=== PATIENT | male | born 1995 | race Caucasian/White ===

== ENCOUNTER 2021-12-05 02:56 | Emergency (ER) | payer MEDICAID ==
[~2021-12-05] VITALS: Ht 177.8 cm; Wt 84.1 kg
[2021-12-05 03:53] VITALS: BP 130/87
== END 2021-12-05 04:19 | disposition home or self-care (01) ==
LOC: EMS 02:57
DX: S60.412A Abrasion of right middle finger, initial encounter (principal); W49.04XA Ring or other jewelry causing external constriction, initial encounter; Y93.89 Activity, other specified; Y92.89 Other specified places as the place of occurrence of the external cause; Y99.8 Other external cause status
CPT/HCPCS: 99284; Z7502

== ENCOUNTER 2021-12-28 00:20 | Inpatient (IN) | payer MEDICAID ==
[2021-12-28] VITALS (7 sets, daily range): BP systolic 89–110; BP diastolic 50–66
[~2021-12-28] VITALS: Ht 180.3 cm; Wt 109.4 kg
[2021-12-28] MEDS ORDERED: SODIUM CHLORIDE 0.9% 3,000 ML IV ONE (01:15)
[2021-12-28] MEDS ORDERED: ONDANSETRON HCL 4 MG/2 ML VIAL IVP ONE ×2 (01:15→12:00)
[2021-12-28] MEDS ORDERED: VANCOMYCIN HCL 1.5 GM in DEXTROSE 5%-WATER 250 ML IV ONE ×2 (01:15→13:45)
[2021-12-28] MEDS ORDERED: ACETAMINOPHEN 500 MG TABLET PO ONE (01:15)
[2021-12-28 01:25] LABS: BASOPHILS % (AUTO) 0.3 % (0.0-2.0); EOSINOPHILS % (AUTO) 0.1 % (1.0-6.0); LYMPHOCYTES # (AUTO) 2.2 K/uL (1.0-4.8); LYMPHOCYTES % (AUTO) 9.9 % (22.0-44.0); MEAN CORPUSCULAR HEMOGLOBIN 29.7 pg (26.0-34.0); MEAN CORPUSCULAR HGB CONC 34.2 G/dL (31.0-37.0); MEAN CORPUSCULAR VOLUME 87 fL (80-100); MONOCYTES # (AUTO) 2.3 K/uL (0.1-1.0); NEUTROPHILS # (AUTO) 17.9 K/uL (1.8-7.7); NEUTROPHILS % (AUTO) 79.7 % (40.0-70.0); PLATELET COUNT (AUTO) 418 K/uL (150-450); RED BLOOD CELL COUNT(AUTO) 4.04 MIL/uL (4.50-5.90); RED CELL DISTRIBUTION WIDTH 14.2 % (11.5-14.5)
[2021-12-28 01:36] LABS: ANION GAP 8 mmol/L (8-16); CALCIUM, TOTAL 8.8 mg/dL (8.8-10.5); CARBON DIOXIDE 27 mmol/L (22-29); CHLORIDE 98 mmol/L (98-107); CREATININE 0.97 mg/dL (0.60-1.30); GLOMERULAR FILTR. RATE CALC > 60 mL/min (>60); GLUCOSE,RANDOM 129 mg/dL (70-110); POTASSIUM 3.7 mmol/L (3.5-5.1); SODIUM SERUM 133 mmol/L (136-145); UREA NITROGEN, BLOOD 13 mg/dL (7-18)
[2021-12-28 01:42] LABS: ALANINE AMINOTRANSFERASE 80 U/L (12-78); ALKALINE PHOSPHATASE 86 U/L (46-116); ASPARTATE AMINOTRANSFERASE 51 U/L (15-37); BILIRUBIN,TOTAL 0.6 mg/dL (0.1-1.0); TOTAL PROTEIN, SERUM 8.5 g/dL (6.4-8.2)
[2021-12-28] MEDS ORDERED: SODIUM CHLORIDE 0.9% 100 ML ONE (01:49)
[2021-12-28] MEDS ORDERED: IOHEXOL 350 MG/ML 150 ML VIAL ONE (01:49)
[2021-12-28 02:03] LABS: LACTIC ACID 0.7 mmol/L (0.4-2.0)
[2021-12-28] MEDS ORDERED: PIPERACILLIN/TAZO 3.375 GM/D5W 50 ML IV ONE (05:00)
[2021-12-28] MEDS: SODIUM CHLORIDE 0.9% 1,000 ML IV SCH ×3 (05:45→21:45)
[2021-12-28] MEDS ORDERED: ACETAMINOPHEN 325 MG TABLET PO PRN (05:45)
[2021-12-28 05:49] LABS: COVID AG,FIA SOURCE NASOPHARYNGEAL
[2021-12-28] MEDS ORDERED: CLINDAMYCIN 900 MG/D5% WATER 50 ML IV ONE (06:15)
[2021-12-28 06:40] LABS: APPEARANCE,URINE CLEAR (CLEAR); BILIRUBIN,URINE NEGATIVE (NEGATIVE); GLUCOSE, URINE (UA) NEGATIVE (NEGATIVE); KETONES,URINE NEGATIVE (NEGATIVE); LEUKOCYTE ESTERASE ,URINE NEGATIVE (NEGATIVE); NITRATE,URINE NEGATIVE (NEGATIVE); OCCULT BLOOD,URINE TRACE (NEGATIVE); PH,URINE 5.5 (5.0-8.0); PROTEIN,URINE NEGATIVE (NEGATIVE); SPECIFIC GRAVITIY, URINE 1.023 (1.003-1.030); UROBILINOGEN,URINE <=1.0 mg/dL (<=1.0)
[2021-12-28 06:47] LABS: AMPHET/METH SCREEN,URINE POSITIVE (NEGATIVE); BARBITURATE SCREEN, URINE NEGATIVE (NEGATIVE); BENZODIAZEPINES SCREEN,URINE NEGATIVE (NEGATIVE); CANNABINOID SCREEN,URINE POSITIVE (NEGATIVE); COCAINE SCREEN,URINE NEGATIVE (NEGATIVE); METHADONE SCREEN, URINE NEGATIVE (NEGATIVE); OPIATE SCREEN,URINE NEGATIVE (NEGATIVE)
[2021-12-28 06:50] LABS: PHENCYCLIDINE SCREEN,URINE NEGATIVE (NEGATIVE)
[2021-12-28 07:15] LABS: BACTERIA,URINE None Seen /HPF (None Seen); RBC,URINE 0-2 /HPF (0-2); WBC,URINE None Seen /HPF (0-5)
[2021-12-28] MEDS ORDERED: KETOROLAC TROMETHAMINE 60 MG/2 ML VIAL IM ONE (12:00)
[2021-12-28] MEDS ORDERED: ROCURONIUM BROMIDE 10 MG/ML 5 ML VIAL IVP ONE (12:00)
[2021-12-28] MEDS ORDERED: LIDOCAINE/PF 2% 5 ML VIAL IM ONE (12:00)
[2021-12-28] MEDS ORDERED: PROPOFOL 1% 20 ML VIAL IVP ONE (12:00)
[2021-12-28] MEDS ORDERED: FentaNYL CITRATE PF 100 MCG/2 ML VIAL IVP ONE (12:00)
[2021-12-28] MEDS ORDERED: DEXAMETHASONE SOD PHOS 4 MG/ML VIAL IVP ONE (12:00)
[2021-12-28] MEDS ORDERED: HYDROmorphone 2 MG/ML VIAL IVP ONE (12:00)
[2021-12-28] MEDS ORDERED: 0.9% SODIUM CHLORIDE 10 ML VIAL IVP ONE (12:00)
[2021-12-28] MEDS ORDERED: MIDAZOLAM HCL 2 MG/2 ML VIAL IVP ONE (12:00)
[2021-12-28] MEDS: PIPERACILLIN/TAZO 3.375 GM/D5W 50 ML IV SCH ×3 (12:15→23:56)
[2021-12-28] MEDS: MORPHINE SULFATE 4 MG/ML SYRINGE IVP PRN (13:01)
[2021-12-28] MEDS ORDERED: RINGERS SOLUTION,LACTATED 1,000 ML IV ONE (14:42)
[2021-12-28] MEDS ORDERED: MEPERIDINE-PF 25 MG/ML VIAL IVP PRN (15:30)
[2021-12-28] MEDS ORDERED: HYDROmorphone 2 MG/ML VIAL IVP PRN (15:30)
[2021-12-28] MEDS ORDERED: FentaNYL CITRATE PF 100 MCG/2 ML VIAL IVP PRN (15:30)
[2021-12-28] MEDS ORDERED: IBUPROFEN 800 MG TABLET PO PRN (16:15)
[2021-12-28] MEDS ORDERED: SODIUM CHLORIDE 0.9% 250 ML IV ONE (18:15)
[2021-12-28] MEDS: OXYGEN THERAPY IH SCH (20:00)
[2021-12-28] MEDS: HEPARIN SODIUM,PORCINE 5,000 UNITS/ML VIAL SQ SCH (22:25)
[2021-12-28] MEDS: VANCOMYCIN HCL 1.25 GM in DEXTROSE 5%-WATER 250 ML IV SCH (23:19)
[2021-12-29 04:15] VITALS: BP 122/75
[2021-12-29] MEDS: SODIUM CHLORIDE 0.9% 1,000 ML IV SCH ×2 (05:33→14:54)
[2021-12-29] MEDS: PIPERACILLIN/TAZO 3.375 GM/D5W 50 ML IV SCH ×4 (05:33→22:58)
[2021-12-29] MEDS: ONDANSETRON HCL 4 MG/2 ML VIAL IVP PRN (06:44)
[2021-12-29 07:20] VITALS: BP 116/89
[2021-12-29] MEDS: OXYGEN THERAPY IH SCH ×2 (07:52→20:00)
[2021-12-29] MEDS: HEPARIN SODIUM,PORCINE 5,000 UNITS/ML VIAL SQ SCH ×2 (07:56→16:26)
[2021-12-29] MEDS: VANCOMYCIN HCL 1.25 GM in DEXTROSE 5%-WATER 250 ML IV SCH (07:56)
[2021-12-29 08:19] LABS: CALCIUM, TOTAL 8.8 mg/dL (8.8-10.5); CREATININE 2.32 mg/dL (0.60-1.30); POTASSIUM 4.8 mmol/L (3.5-5.1)
[2021-12-29] MEDS ORDERED: VANCOMYCIN 1GM/WATER(PEG/NADA) 200 ML IV PRN (08:30)
[2021-12-29] MEDS: MORPHINE SULFATE 4 MG/ML SYRINGE IVP PRN ×3 (10:32→22:59)
[2021-12-29 12:00] VITALS: BP 123/63
[2021-12-29] MEDS: HYDROCODONE/ACETAMINOPHEN 5-325 MG TABLET PO PRN (14:54)
[2021-12-29 15:42] VITALS: BP 115/62
[2021-12-29 20:05] VITALS: BP 122/65
[2021-12-30 00:23] VITALS: BP 133/55
[2021-12-30] MEDS: SODIUM CHLORIDE 0.9% 1,000 ML IV SCH ×4 (00:29→22:05)
[2021-12-30 03:07] LABS: HIV 1-2 SCREEN 4TH GEN W/RFLX Non Reactive (Non Reactive)
[2021-12-30] MEDS: ONDANSETRON HCL 4 MG/2 ML VIAL IVP PRN ×2 (04:39→18:28)
[2021-12-30] MEDS: MORPHINE SULFATE 4 MG/ML SYRINGE IVP PRN ×2 (04:39→17:26)
[2021-12-30 04:55] VITALS: BP 132/70
[2021-12-30 07:01] LABS: BASOPHILS % (AUTO) 0.4 % (0.0-2.0); EOSINOPHILS % (AUTO) 0.2 % (1.0-6.0); HEMATOCRIT 33.5 % (41-53); HEMOGLOBIN 10.8 g/dL (13.5-17.5); LYMPHOCYTES # (AUTO) 1.9 K/uL (1.0-4.8); LYMPHOCYTES % (AUTO) 12.5 % (22.0-44.0); MEAN CORPUSCULAR HEMOGLOBIN 28.7 pg (26.0-34.0); MEAN CORPUSCULAR HGB CONC 32.2 G/dL (31.0-37.0); MEAN CORPUSCULAR VOLUME 89 fL (80-100); MONOCYTES # (AUTO) 1.7 K/uL (0.1-1.0); MONOCYTES % (AUTO) 10.8 % (2.0-9.0); NEUTROPHILS # (AUTO) 11.8 K/uL (1.8-7.7); NEUTROPHILS % (AUTO) 76.1 % (40.0-70.0); PLATELET COUNT (AUTO) 428 K/uL (150-450); RED BLOOD CELL COUNT(AUTO) 3.76 MIL/uL (4.50-5.90); RED CELL DISTRIBUTION WIDTH 14.3 % (11.5-14.5)
[2021-12-30 07:21] LABS: CALCIUM, TOTAL 8.3 mg/dL (8.8-10.5); CREATININE 4.09 mg/dL (0.60-1.30); POTASSIUM 4.3 mmol/L (3.5-5.1); VANCOMYCIN,RANDOM 37.9 mcg/mL (25.0-50.0)
[2021-12-30] MEDS: PIPERACILLIN/TAZO 3.375 GM/D5W 50 ML IV SCH (07:32)
[2021-12-30 07:54] VITALS: BP 123/69
[2021-12-30] MEDS: MULTIVITAMINS WITH MINERALS, THERAPEUTIC TABLET PO SCH (08:35)
[2021-12-30] MEDS: HEPARIN SODIUM,PORCINE 5,000 UNITS/ML VIAL SQ SCH ×4 (08:35→23:30)
[2021-12-30 10:53] VITALS: BP 101/61
[2021-12-30] MEDS: PIPERACILLIN SODIUM/TAZOBACTAM 2.25 GM in DEXTROSE 5%-WATER 50 ML IV SCH ×2 (12:00→18:23)
[2021-12-30 14:54] VITALS: BP 104/76
[2021-12-30] MEDS: HYDROCODONE/ACETAMINOPHEN 5-325 MG TABLET PO PRN (15:50)
[2021-12-30] MEDS ORDERED: SODIUM CHLORIDE 0.9% IRRIG BTL 1,000 ML IRRIG ONE (16:39)
[2021-12-30] MEDS: OXYGEN THERAPY IH SCH (20:00)
[2021-12-30 20:12] VITALS: BP 129/72
[2021-12-30 20:45] LABS: CREATININE,URINE RANDOM 18.3 mg/dL (30.0-125.0)
[2021-12-31] MEDS: PIPERACILLIN SODIUM/TAZOBACTAM 2.25 GM in DEXTROSE 5%-WATER 50 ML IV SCH ×2 (00:20→05:43)
[2021-12-31 04:57] VITALS: BP 126/72
[2021-12-31] MEDS: SODIUM CHLORIDE 0.9% 1,000 ML IV SCH (04:57)
[2021-12-31] MEDS: HYDROCODONE/ACETAMINOPHEN 5-325 MG TABLET PO PRN ×2 (05:44→20:24)
[2021-12-31 05:56] LABS: BASOPHILS % (AUTO) 0.5 % (0.0-2.0); EOSINOPHILS % (AUTO) 0.4 % (1.0-6.0); HEMATOCRIT 33.4 % (41-53); LYMPHOCYTES # (AUTO) 1.8 K/uL (1.0-4.8); LYMPHOCYTES % (AUTO) 14.8 % (22.0-44.0); MEAN CORPUSCULAR HEMOGLOBIN 28.9 pg (26.0-34.0); MEAN CORPUSCULAR HGB CONC 32.8 G/dL (31.0-37.0); MEAN CORPUSCULAR VOLUME 88 fL (80-100); MONOCYTES # (AUTO) 1.4 K/uL (0.1-1.0); MONOCYTES % (AUTO) 11.6 % (2.0-9.0); NEUTROPHILS % (AUTO) 72.7 % (40.0-70.0); PLATELET COUNT (AUTO) 441 K/uL (150-450); RED BLOOD CELL COUNT(AUTO) 3.79 MIL/uL (4.50-5.90)
[2021-12-31 06:07] LABS: CALCIUM, TOTAL 8.3 mg/dL (8.8-10.5); CREATININE 5.21 mg/dL (0.60-1.30); POTASSIUM 4.7 mmol/L (3.5-5.1)
[2021-12-31] MEDS: OXYGEN THERAPY IH SCH ×2 (08:00→20:30)
[2021-12-31] MEDS: ONDANSETRON HCL 4 MG/2 ML VIAL IVP PRN (08:26)
[2021-12-31] MEDS: MULTIVITAMINS WITH MINERALS, THERAPEUTIC TABLET PO SCH (08:26)
[2021-12-31] MEDS: HEPARIN SODIUM,PORCINE 5,000 UNITS/ML VIAL SQ SCH ×3 (08:27→23:14)
[2021-12-31 08:34] VITALS: BP 127/65
[2021-12-31] MEDS: MORPHINE SULFATE 4 MG/ML SYRINGE IVP PRN (08:44)
[2021-12-31] MEDS: CefTRIAXone SODIUM 2 GM in DEXTROSE 5%-WATER 50 ML IV SCH (13:29)
[2021-12-31 15:37] VITALS: BP 127/82
[2021-12-31] MEDS: CLINDAMYCIN HCL 150 MG CAPSULE PO SCH ×2 (16:20→20:25)
[2021-12-31] MEDS ORDERED: CLINDAMYCIN HCL 150 MG CAPSULE PO SCH ×2 (18:00)
[2021-12-31 20:07] VITALS: BP 121/73
[2022-01-01 04:30] VITALS: BP 132/74
[2022-01-01 07:22] LABS: CALCIUM, TOTAL 8.5 mg/dL (8.8-10.5); CREATININE 5.7 mg/dL (0.60-1.30); POTASSIUM 4.8 mmol/L (3.5-5.1); VANCOMYCIN,RANDOM 18.8 mcg/mL (25.0-50.0)
[2022-01-01] MEDS: OXYGEN THERAPY IH SCH ×2 (07:34→20:01)
[2022-01-01] MEDS: CLINDAMYCIN HCL 150 MG CAPSULE PO SCH ×4 (08:39→20:00)
[2022-01-01] MEDS: HEPARIN SODIUM,PORCINE 5,000 UNITS/ML VIAL SQ SCH ×2 (08:39→15:28)
[2022-01-01] MEDS: MULTIVITAMINS WITH MINERALS, THERAPEUTIC TABLET PO SCH (08:39)
[2022-01-01] MEDS: ONDANSETRON HCL 4 MG/2 ML VIAL IVP PRN (08:44)
[2022-01-01] MEDS ORDERED: WATER FOR IRRIGATION,STERILE 1000 ML SOLUTION BOTTLE ONE (11:00)
[2022-01-01] MEDS: MORPHINE SULFATE 4 MG/ML SYRINGE IVP PRN (11:09)
[2022-01-01] MEDS: CefTRIAXone SODIUM 2 GM in DEXTROSE 5%-WATER 50 ML IV SCH (12:41)
[2022-01-01 16:12] VITALS: BP 122/68
[2022-01-01] MEDS: HYDROCODONE/ACETAMINOPHEN 5-325 MG TABLET PO PRN (20:03)
[2022-01-01 20:20] VITALS: BP 124/73
[2022-01-02] MEDS: ONDANSETRON HCL 4 MG/2 ML VIAL IVP PRN ×2 (03:24→21:39)
[2022-01-02 04:55] VITALS: BP 122/77
[2022-01-02 06:26] LABS: CALCIUM, TOTAL 8.7 mg/dL (8.8-10.5); CREATININE 5.6 mg/dL (0.60-1.30); POTASSIUM 5.5 mmol/L (3.5-5.1)
[2022-01-02] MEDS: HEPARIN SODIUM,PORCINE 5,000 UNITS/ML VIAL SQ SCH ×4 (07:58→23:23)
[2022-01-02] MEDS: OXYGEN THERAPY IH SCH ×2 (07:58→20:27)
[2022-01-02] MEDS: MULTIVITAMINS WITH MINERALS, THERAPEUTIC TABLET PO SCH (07:58)
[2022-01-02] MEDS: CLINDAMYCIN HCL 150 MG CAPSULE PO SCH ×4 (07:58→20:26)
[2022-01-02 08:00] VITALS: BP 132/78
[2022-01-02] MEDS ORDERED: SODIUM CHLORIDE 0.9% 500 ML IV ONE (10:45)
[2022-01-02] MEDS: SODIUM ZIRCONIUM CYCLOSILICATE 5 GM POWDER PACKET PO SCH (12:45)
[2022-01-02] MEDS: CefTRIAXone SODIUM 2 GM in DEXTROSE 5%-WATER 50 ML IV SCH (12:45)
[2022-01-02 16:19] VITALS: BP 125/67
[2022-01-02 20:00] VITALS: BP 127/69
[2022-01-03 04:18] VITALS: BP 127/69
[2022-01-03 07:28] LABS: CALCIUM, TOTAL 9.2 mg/dL (8.8-10.5); CREATININE 4.77 mg/dL (0.60-1.30); POTASSIUM 5.7 mmol/L (3.5-5.1)
[2022-01-03] MEDS: OXYGEN THERAPY IH SCH ×2 (08:00→20:00)
[2022-01-03] MEDS: HEPARIN SODIUM,PORCINE 5,000 UNITS/ML VIAL SQ SCH ×3 (08:02→23:41)
[2022-01-03] MEDS: SODIUM ZIRCONIUM CYCLOSILICATE 5 GM POWDER PACKET PO SCH (08:02)
[2022-01-03] MEDS: CLINDAMYCIN HCL 150 MG CAPSULE PO SCH ×4 (08:02→20:10)
[2022-01-03] MEDS: MULTIVITAMINS WITH MINERALS, THERAPEUTIC TABLET PO SCH (08:04)
[2022-01-03] MEDS: CefTRIAXone SODIUM 2 GM in DEXTROSE 5%-WATER 50 ML IV SCH (12:28)
[2022-01-03] MEDS ORDERED: SODIUM CHLORIDE 0.9% 500 ML IV ONE (12:46)
[2022-01-03 15:39] LABS: BASOPHILS % (AUTO) 1.3 % (0.0-2.0); EOSINOPHILS % (AUTO) 3.4 % (1.0-6.0); HEMOGLOBIN 11.5 g/dL (13.5-17.5); LYMPHOCYTES # (AUTO) 1.8 K/uL (1.0-4.8); LYMPHOCYTES % (AUTO) 17.2 % (22.0-44.0); MEAN CORPUSCULAR HGB CONC 33.7 G/dL (31.0-37.0); MEAN CORPUSCULAR VOLUME 86 fL (80-100); MONOCYTES # (AUTO) 1.5 K/uL (0.1-1.0); MONOCYTES % (AUTO) 14.2 % (2.0-9.0); NEUTROPHILS # (AUTO) 6.8 K/uL (1.8-7.7); NEUTROPHILS % (AUTO) 63.9 % (40.0-70.0); PLATELET COUNT (AUTO) 556 K/uL (150-450); RED BLOOD CELL COUNT(AUTO) 3.96 MIL/uL (4.50-5.90); RED CELL DISTRIBUTION WIDTH 14.2 % (11.5-14.5)
[2022-01-03 16:27] VITALS: BP 127/60
[2022-01-03 20:05] VITALS: BP 136/56
[2022-01-04] MEDS: ONDANSETRON HCL 4 MG/2 ML VIAL IVP PRN (00:26)
[2022-01-04 05:35] VITALS: BP 119/64
[2022-01-04] MEDS: OXYGEN THERAPY IH SCH ×2 (08:00→20:00)
[2022-01-04] MEDS: MULTIVITAMINS WITH MINERALS, THERAPEUTIC TABLET PO SCH (08:02)
[2022-01-04] MEDS: CLINDAMYCIN HCL 150 MG CAPSULE PO SCH ×4 (08:02→20:00)
[2022-01-04] MEDS: HEPARIN SODIUM,PORCINE 5,000 UNITS/ML VIAL SQ SCH ×3 (08:03→20:05)
[2022-01-04 08:43] VITALS: BP 112/66
[2022-01-04] MEDS ORDERED: SODIUM ZIRCONIUM CYCLOSILICATE 5 GM POWDER PACKET PO SCH (09:00)
[2022-01-04] MEDS: HYDROCODONE/ACETAMINOPHEN 5-325 MG TABLET PO PRN ×2 (11:24→20:00)
[2022-01-04 11:49] LABS: CALCIUM, TOTAL 9.6 mg/dL (8.8-10.5); CREATININE 4.16 mg/dL (0.60-1.30); POTASSIUM 5.4 mmol/L (3.5-5.1)
[2022-01-04] MEDS: CefTRIAXone SODIUM 2 GM in DEXTROSE 5%-WATER 50 ML IV SCH (13:24)
[2022-01-04 16:07] VITALS: BP 122/55
[2022-01-04 20:18] VITALS: BP 132/78
[2022-01-04] MEDS ORDERED: ZOLPIDEM TARTRATE 5 MG TABLET PO PRN (20:45)
[2022-01-05 04:55] VITALS: BP 122/63
[2022-01-05 06:15] LABS: CALCIUM, TOTAL 9.5 mg/dL (8.8-10.5); CREATININE 3.95 mg/dL (0.60-1.30); PHOSPHORUS 6.4 mg/dL (2.5-4.9); POTASSIUM 5.3 mmol/L (3.5-5.1)
[2022-01-05 07:45] VITALS: BP 116/63
[2022-01-05] MEDS: OXYGEN THERAPY IH SCH ×2 (08:00→20:00)
[2022-01-05] MEDS: MULTIVITAMINS WITH MINERALS, THERAPEUTIC TABLET PO SCH (08:14)
[2022-01-05] MEDS: HEPARIN SODIUM,PORCINE 5,000 UNITS/ML VIAL SQ SCH ×2 (08:14→17:12)
[2022-01-05] MEDS: CLINDAMYCIN HCL 150 MG CAPSULE PO SCH ×4 (08:15→20:13)
[2022-01-05] MEDS ORDERED: SODIUM ZIRCONIUM CYCLOSILICATE 5 GM POWDER PACKET PO SCH (11:00)
[2022-01-05] MEDS: CefTRIAXone SODIUM 2 GM in DEXTROSE 5%-WATER 50 ML IV SCH (13:22)
[2022-01-05 16:08] VITALS: BP 140/74
[2022-01-05] MEDS: ONDANSETRON HCL 4 MG/2 ML VIAL IVP PRN (17:19)
[2022-01-05] MEDS ORDERED: CLIN-26 PO (17:37)
[2022-01-05] MEDS ORDERED: CEFX2I IV (17:38)
[2022-01-05] MEDS ORDERED: MULT-248 PO (17:39)
[2022-01-05] MEDS ORDERED: HEPA500018 SQ (17:39)
[2022-01-05] MEDS ORDERED: SODI10PO2 PO (17:40)
[2022-01-05] MEDS ORDERED: HYDR-4723 PO (17:41)
[2022-01-05] MEDS ORDERED: ACET-2247 PO (17:41)
[2022-01-05] MEDS ORDERED: ZOLP-280 PO (17:42)
[2022-01-05 20:04] VITALS: BP 128/69
== END 2022-01-05 20:55 | DRG 720 ==
LOC: EMS 00:25 → 5S 05:31 → 6S 12-30 17:20
PROVIDERS: ADMIT Internal Medicine; ATTEND Internal Medicine
PROC: 0JBB0ZZ Excision of Perineum Subcutaneous Tissue and Fascia, Open Approach (ICD-10-PCS; principal; 2021-12-28 15:30)
PROC: 05HC33Z Insertion of Infusion Device into Left Basilic Vein, Percutaneous Approach (ICD-10-PCS; 2021-12-30)
DX: A41.9 Sepsis, unspecified organism (principal); N17.0 Acute kidney failure with tubular necrosis; E87.1 Hypo-osmolality and hyponatremia; F12.90 Cannabis use, unspecified, uncomplicated; F17.210 Nicotine dependence, cigarettes, uncomplicated; R73.9 Hyperglycemia, unspecified; F19.10 Other psychoactive substance abuse, uncomplicated; L02.215 Cutaneous abscess of perineum; R74.8 Abnormal levels of other serum enzymes; K62.89 Other specified diseases of anus and rectum; E87.5 Hyperkalemia; F15.10 Other stimulant abuse, uncomplicated; K61.1 Rectal abscess; L03.311 Cellulitis of abdominal wall; S60.442A External constriction of right middle finger, initial encounter; Z20.822 Contact with and (suspected) exposure to COVID-19; W49.04XA Ring or other jewelry causing external constriction, initial encounter; Z59.00 Homelessness unspecified; Y93.89 Activity, other specified; Y92.89 Other specified places as the place of occurrence of the external cause; Y99.8 Other external cause status; Z90.49 Acquired absence of other specified parts of digestive tract
CPT/HCPCS: 36245; 36569; 71045; 74177; 76770; 76937; 80048; 80053; 80202; 81001; 82550; 82570; 83605; 84100; 84300; 85025; 87040; 87070; 87081; 87205; 87389; 88304; 93005; 99291; G0378; G0480; J0696; J1100; J1170; J1644; J1885; J2250; J2270; J2405; J2543; J2704; J3010; J3370; J3490; J7030; J7040; J7050; J7060; J7120; Q9967; 36415-L1; 36415-TC; Z7610